=== PATIENT | male | born 1995 | race Two or more races ===

== ENCOUNTER 2024-07-06 14:35 | Outpatient (CLI) | payer OTHER | END 2024-07-06 14:37 | disposition home or self-care (01) | LOC: SONOGRAMA 14:35 | PROVIDERS: ATTEND Pathology Anatomic Pathology & Clinical Pathology | DX: E04.1 Nontoxic single thyroid nodule (principal); R22.1 Localized swelling, mass and lump, neck; D34 Benign neoplasm of thyroid gland ==

== ENCOUNTER 2024-11-05 12:51 | Emergency (ER) | payer OTHER ==
[~2024-11-05] VITALS: Ht 182.9 cm; Wt 83.9 kg
[2024-11-05] MEDS ORDERED: 0.9 % SODIUM CHLORIDE 1,000 ML IV SCH (13:30)
[2024-11-05 13:32] VITALS: BP 122/83; O2SAT 100
[2024-11-05] MEDS ORDERED: BARIUM SULFATE 450 ML ORAL.SUSP PO ONE (13:47)
[2024-11-05 14:29] LABS: HEMATOCRIT 49.1 % (39.0-48.0); HEMOGLOBIN 16.9 g/dL (13-16.00); MEAN CELL VOLUME 91.4 fL (80.0-100.00); MEAN CORPUSCULAR HEMOGLOBIN 31.5 pg (27.00-32.0); MEAN CORPUSCULAR HGB CONC 34.5 g/dl (32.0-36.0); PLATELET COUNT 220 K/uL (150-450); RED BLOOD COUNT 5.37 M/uL (4.00-6.00); RED CELL DISTRIBUTION WIDTH 14.3 % (11.5-14.5)
[2024-11-05 14:52] LABS: CALCIUM 9.5 mg/dL (8.5-10.1); CREATININE SERUM 1.03 mg/dL (0.70-1.30); GFR 84.23; POTASSIUM 3.72 mEq/L (3.5-5.1)
[2024-11-05 15:42] LABS: URINE APPEARANCE Clear; URINE BILIRRUBIN Negative (NEGATIVE); URINE BLOOD Negative; URINE COLOR Yellow; URINE GLUCOSE Negative (NEGATIVE); URINE KETONE 15 (NEGATIVE); URINE LEUKOCYTE Negative; URINE NITRATE Negative; URINE PROTEIN Negative (NEGATIVE); URINE UROBILINOGEN 0.2 E.U./dl
[2024-11-05 15:46] LABS: URINE BACTERIA 6.1 uL (0.0-1933); URINE EPITHELIAL CELLS 1.8 uL (0.0-38.8); URINE RBC 11.3 uL (0.0-20.8); URINE WBC 3.9 uL (0.0-23.2)
[2024-11-05] MEDS ORDERED: KETOROLAC TROMETHAMINE 30 MG VIAL ONE (19:47)
[2024-11-05] MEDS ORDERED: DICLOFENAC SODI75 MG PO (19:51)
[2024-11-05] MEDS ORDERED: KETOROLAC TROMETHAMINE 30 MG VIAL IV ONE (20:00)
== END 2024-11-05 20:09 | disposition home or self-care (01) ==
LOC: ER 12:51
PROVIDERS: Emergency Medicine
DX: R10.9 Unspecified abdominal pain (principal)
CPT/HCPCS: 36415; 74177; Q9965